=== PATIENT | female | born 1945 | race Two or more races ===

== ENCOUNTER 2024-03-03 15:56 | Inpatient (IN) | payer OTHER, MEDICAID ==
[~2024-03-03] VITALS: Ht 154.9 cm; Wt 43.7 kg
[2024-03-03 16:25] VITALS: PULSE 65; RESP 13; O2SAT 97
[2024-03-03] MEDS: SODIUM CHLORIDE 0.9% 1,000 ML IV ONE (16:30)
[2024-03-03 17:28] LABS: Basophils # (auto) 0.1 10 ^3/uL (0-0.2); Basophils % (auto) 0.4 % (0.0-2.0); Eosinophils # (auto) 0 10 ^3/uL (0-0.8); Eosinophils % (auto) 0.1 % (0.0-7.0); Hematocrit 45.8 % (36.0-46.0); Hemoglobin 15.1 g/dL (12.2-16.2); Lymphocytes # (auto) 0.8 10 ^3/uL (0.4-5.4); Lymphocytes % (auto) 4.6 % (10.0-50.0); Mean Corpuscular Hemoglobin 31.4 pg (28.0-32.0); Mean Corpuscular Hgb Conc. 33.1 g/dL (32.0-36.0); Mean Corpuscular Volume 95.1 fL (80.0-100.0); Monocytes # (auto) 0.9 10 ^3/uL (0-1.3); Monocytes % (auto) 5.4 % (0.0-12.0); Neutrophils # (auto) 15.5 10 ^3/uL (1.6-8.6); Neutrophils % (auto) 89.5 % (37.0-80.0); Platelet Count (auto) 271 10^3/uL (140-450); Red Blood Cells 4.81 10^6/uL (4.0-5.20); Red Cell Distribution Width 14.8 % (11.8-14.3); White Blood Cell 17.4 10^3/uL (4.4-10.8)
[2024-03-03] MEDS: ONDANSETRON HCL 4 MG/2 ML VIAL IV ONE ×2 (17:33→21:28)
[2024-03-03 17:46] LABS: Alanine Aminotransferase 18 U/L (7-40); Alkaline Phosphatase 52 U/L (46-116); Anion Gap 11 (5-15); Aspartate Aminotransferase 34 U/L (13-40); Blood Urea Nitrogen 18 mg/dL (9-23); Calcium 9.2 mg/dL (8.7-10.4); Carbon Dioxide 25 mmol/L (20-30); Chloride 104 mmol/L (98-107); Glucose 143 mg/dL (74-106); Lipase 17 U/L (12-53); Sodium 140 mmol/L (136-145)
[2024-03-03 17:47] LABS: Bilirubin, Total 0.5 mg/dL (0.2-1.0); Total Protein 6.4 g/dL (5.7-8.2)
[2024-03-03 17:50] LABS: Lactic Acid w/Reflex 2.1 mmol/L (0.4-2.0)
[2024-03-03] MEDS ORDERED: METOCLOPRAMIDE HCL 5MG/ml INJ 2ml VIAL IV ONE (18:30)
[2024-03-03] MEDS: METOCLOPRAMIDE HCL 5MG/ml INJ 2ml VIAL IV ONE (18:55)
[2024-03-03] MEDS: fentaNYL CITRATE 100 MCG/2 ML VL IV ONE (18:56)
[2024-03-03] MEDS: PIPERACILLIN-TAZOB 3.375GM 100 ML IV ONE (20:30)
[2024-03-03] MEDS ORDERED: ONDANSETRON HCL 4 MG/2 ML VIAL IV PRN (21:30)
[2024-03-03] MEDS: D5W/SOD CHL 0.45% 1,000 ML IV ONE (21:30)
[2024-03-03] MEDS: METOCLOPRAMIDE HCL 5MG/ml INJ 2ml VIAL IV SCH (22:00)
[2024-03-03] MEDS: PANTOPRAZOLE 40 MG/10 ML VIAL INJ IV ONE (23:30)
[2024-03-03] MEDS: D5W/SOD CHL 0.45% 1,000 ML IV SCH (23:30)
[2024-03-04] VITALS (9 sets, daily range): BP systolic 80–166; BP diastolic 67–93; PULSE 69–89; RESP 16–20; TEMP 97.8–98.4; O2SAT 91–99
[2024-03-04] MEDS: MORPHINE SULFATE INJ 2 MG/ml SYRG IV PRN (00:29)
[2024-03-04 03:26] LABS: Chloride 109 mmol/L (98-107); Potassium 3.4 mmol/L (3.5-5.1); Sodium 142 mmol/L (136-145)
[2024-03-04 03:27] LABS: Anion Gap 4 (5-15); Basophils # (auto) 0 10 ^3/uL (0-0.2); Basophils % (auto) 0.3 % (0.0-2.0); Calcium 8.5 mg/dL (8.7-10.4); Carbon Dioxide 29 mmol/L (20-30); Eosinophils # (auto) 0 10 ^3/uL (0-0.8); Eosinophils % (auto) 0.1 % (0.0-7.0); Hematocrit 39.4 % (36.0-46.0); Hemoglobin 13.1 g/dL (12.2-16.2); Lymphocytes % (auto) 7.3 % (10.0-50.0); Mean Corpuscular Hemoglobin 31.3 pg (28.0-32.0); Mean Corpuscular Hgb Conc. 33.1 g/dL (32.0-36.0); Mean Corpuscular Volume 94.4 fL (80.0-100.0); Monocytes # (auto) 1.3 10 ^3/uL (0-1.3); Monocytes % (auto) 9.5 % (0.0-12.0); Neutrophils # (auto) 10.9 10 ^3/uL (1.6-8.6); Neutrophils % (auto) 82.8 % (37.0-80.0); Platelet Count (auto) 196 10^3/uL (140-450); Red Blood Cells 4.17 10^6/uL (4.0-5.20); Red Cell Distribution Width 14.4 % (11.8-14.3); White Blood Cell 13.2 10^3/uL (4.4-10.8)
[2024-03-04 03:32] LABS: BUN/Creatinine Ratio 23.8 (10.0-20.0); Blood Urea Nitrogen 15 mg/dL (9-23); Glucose 112 mg/dL (74-106)
[2024-03-04] MEDS: hydrALAZINE HCL 20 MG/ML VL IV PRN (07:01)
[2024-03-04] MEDS: CARVEDILOL 3.125 MG TAB PO SCH (10:00)
[2024-03-04] MEDS: APIXABAN 5 MG TAB PO SCH (10:00)
[2024-03-04] MEDS: AMIODARONE HCL 200 MG TAB PO SCH (10:00)
[2024-03-04] MEDS: ONDANSETRON HCL 4 MG/2 ML VIAL IV PRN (10:31)
[2024-03-04] MEDS: PANTOPRAZOLE 40 MG/10 ML VIAL INJ IV SCH (10:31)
[2024-03-04] MEDS ORDERED: CLINIMIX PER PHARMACY 0 ML IV SCH (12:00)
[2024-03-04 15:28] LABS: Magnesium 1.9 mg/dL (1.6-2.6)
[2024-03-04 15:30] LABS: Phosphorus 4.7 mg/dL (2.4-5.1)
[2024-03-04] MEDS: POTASSIUM CHL 20MEQ/100ML 100 ML IV SCH (15:43)
[2024-03-04] MEDS: AMINO ACID INFUSION IN D10W 1,000 ML IV SCH (20:00)
[2024-03-05] VITALS (9 sets, daily range): BP systolic 123–171; BP diastolic 65–94; PULSE 77–94; RESP 12–20; TEMP 98.1–98.8; O2SAT 90–98
[2024-03-05] MEDS ORDERED: DEXTROSE (50%) 50ML SYRG IV SCH
[2024-03-05] MEDS: ACCU-CHEK COMFORT CURVE STRIP VI SCH (00:14)
[2024-03-05] MEDS: InsuLIN REG 1unit/0.01ml Soln (100units/ml) SC SCH (00:14)
[2024-03-05 06:13] LABS: Potassium 3.3 mmol/L (3.5-5.1)
[2024-03-05 06:14] LABS: Calcium 8.8 mg/dL (8.7-10.4)
[2024-03-05 06:19] LABS: Albumin 3.3 g/dL (3.2-4.8); BUN/Creatinine Ratio 27.7 (10.0-20.0)
[2024-03-05 06:20] LABS: Magnesium 1.7 mg/dL (1.6-2.6)
[2024-03-05 06:21] LABS: Phosphorus 2.8 mg/dL (2.4-5.1)
[2024-03-05] MEDS: POTASSIUM CHL 20MEQ/100ML 100 ML IV ONE (07:45)
[2024-03-05] MEDS: AZITHROMYCIN 500MG/ 250ML 250 ML IV SCH (10:00)
[2024-03-05] MEDS ORDERED: PRAV20TA3 PO (11:26)
[2024-03-05] MEDS ORDERED: HYDR1TAB97 PO (11:26)
[2024-03-05] MEDS ORDERED: APIX5TAB PO (11:26)
[2024-03-05] MEDS ORDERED: PANT40T PO (11:26)
[2024-03-05] MEDS ORDERED: METH-928 PO (11:26)
[2024-03-05] MEDS ORDERED: MET25T PO (11:26)
[2024-03-05] MEDS ORDERED: FAMO-12 PO (11:26)
[2024-03-05] MEDS ORDERED: SACU1TAB PO (11:26)
[2024-03-05] MEDS ORDERED: AMIO200T33 PO (11:26)
[2024-03-05] MEDS ORDERED: IPRA0.06 (11:26)
[2024-03-05] MEDS ORDERED: CARV6.2551 PO (11:26)
[2024-03-05] MEDS ORDERED: SUCR1SUS26 PO (11:26)
[2024-03-05] MEDS ORDERED: FENO54TA4 PO (11:26)
[2024-03-05] MEDS: cefTRIAXone 1GM/50ML D5W 50 ML IV SCH (11:38)
[2024-03-05] MEDS: MORPHINE SULFATE INJ 2 MG/ml SYRG IV PRN (16:31)
[2024-03-05] MEDS: MAGNESIUM SULFATE 1GM/100ML 100 ML IV ONE (17:30)
[2024-03-05] MEDS: POTASSIUM PHOSPHATE 22 MEQ in SODIUM CHL 0.9% 100 ML IV ONE (19:19)
[2024-03-05] MEDS: ACETAMINOPHEN 325 MG TAB PO PRN (23:40)
[2024-03-06] VITALS (13 sets, daily range): BP systolic 122–168; BP diastolic 69–91; PULSE 77–120; RESP 14–32; TEMP 98.3–99.3; O2SAT 88–96
[2024-03-06] MEDS: HYDROcodone-ACET 5/325MG TAB PO PRN (02:56)
[2024-03-06 06:47] LABS: Alkaline Phosphatase 56 U/L (46-116); Anion Gap 7 (5-15); BUN/Creatinine Ratio 29.3 (10.0-20.0); Blood Urea Nitrogen 12 mg/dL (9-23); Calcium 8.7 mg/dL (8.7-10.4); Carbon Dioxide 22 mmol/L (20-30); Chloride 104 mmol/L (98-107); Glucose 154 mg/dL (74-106); Magnesium 1.9 mg/dL (1.6-2.6); Potassium 3.4 mmol/L (3.5-5.1)
[2024-03-06 06:48] LABS: Aspartate Aminotransferase 15 U/L (13-40); Bilirubin, Total 0.5 mg/dL (0.2-1.0); Phosphorus 2.1 mg/dL (2.4-5.1); Total Protein 5.3 g/dL (5.7-8.2)
[2024-03-06 06:51] LABS: Alanine Aminotransferase < 9 U/L (7-40); Sodium 133 mmol/L (136-145)
[2024-03-06] MEDS: POTASSIUM PHOSPHATE 22 MEQ in SODIUM CHL 0.9% 100 ML IV ONE (13:45)
[2024-03-06] MEDS: IPRATROPIUM BROM 0.5 MG/2.5ML INH SOL NEB PRN (15:01)
[2024-03-06] MEDS: ALBUTEROL SULF 2.5 MG/0.5ML(0.5%) NEB SOLN NEB PRN (15:05)
[2024-03-06] MEDS: ENOXAPARIN SOD 30 MG/0.3 ML SYRINGE SC ONE (16:55)
[2024-03-06] MEDS: FUROSEMIDE 20 MG/2 ML VIAL IV ONE (17:31)
[2024-03-06] MEDS: MELATONIN 5 MG TAB PO ONE (22:18)
[2024-03-07] VITALS (49 sets, daily range): BP systolic 66–155; BP diastolic 40–85; PULSE 62–135; RESP 16–31; TEMP 96.9–97.9; O2SAT 88–100
[2024-03-07] MEDS: FUROSEMIDE 20 MG/2 ML VIAL IV ONE ×3 (03:18→15:15)
[2024-03-07 06:04] LABS: Potassium 3.1 mmol/L (3.5-5.1)
[2024-03-07 06:10] LABS: BUN/Creatinine Ratio 27.7 (10.0-20.0)
[2024-03-07 06:11] LABS: Magnesium 1.6 mg/dL (1.6-2.6)
[2024-03-07 06:12] LABS: Albumin 3.3 g/dL (3.2-4.8)
[2024-03-07 06:13] LABS: Phosphorus 2.8 mg/dL (2.4-5.1)
[2024-03-07] MEDS: ALBUTEROL SULF 2.5 MG/0.5ML(0.5%) NEB SOLN NEB PRN (07:14)
[2024-03-07] MEDS: IPRATROPIUM BROM 0.5 MG/2.5ML INH SOL NEB PRN (07:14)
[2024-03-07] MEDS: FUROSEMIDE 20 MG/2 ML VIAL IV SCH (08:10)
[2024-03-07 08:38] LABS: Base Excess -0.7 mmol/L (-2.0-3.0)
[2024-03-07] MEDS: FUROSEMIDE 40 MG/4 ML VIAL IV SCH (09:22)
[2024-03-07] MEDS: POTASSIUM PHOSPHATE 30 MEQ in SODIUM CHL 0.9% 100 ML IV ONE (10:00)
[2024-03-07] MEDS: ENOXAPARIN SOD 30 MG/0.3 ML SYRINGE SC SCH (10:00)
[2024-03-07] MEDS: KETOROLAC TROMETH 30 MG/ML 1ML VIAL IV PRN (12:05)
[2024-03-07] MEDS: METOCLOPRAMIDE HCL 5MG/ml INJ 2ml VIAL IV SCH (12:05)
[2024-03-07] MEDS ORDERED: FUROSEMIDE 40 MG/4 ML VIAL IV ONE (15:15)
[2024-03-07] MEDS: MAGNESIUM SULFATE 1GM/100ML 100 ML IV SCH (15:31)
[2024-03-07] MEDS: POTASSIUM CHL 20MEQ/100ML 100 ML IV ONE (15:32)
[2024-03-07] MEDS: MORPHINE SULFATE INJ 2 MG/ml SYRG IV PRN (15:55)
[2024-03-07] MEDS: NOREPINEPHRINE 8 MG/250ML KIT 250 ML IV SCH (16:27)
[2024-03-07 17:46] LABS: Basophils # (auto) 0 10 ^3/uL (0-0.2); Basophils % (auto) 0.2 % (0.0-2.0); Eosinophils # (auto) 0 10 ^3/uL (0-0.8); Hematocrit 39.8 % (36.0-46.0); Hemoglobin 13.1 g/dL (12.2-16.2); Lymphocytes # (auto) 0.2 10 ^3/uL (0.4-5.4); Lymphocytes % (auto) 1.3 % (10.0-50.0); Mean Corpuscular Hemoglobin 31.1 pg (28.0-32.0); Mean Corpuscular Volume 94.2 fL (80.0-100.0); Monocytes # (auto) 1.1 10 ^3/uL (0-1.3); Monocytes % (auto) 6.7 % (0.0-12.0); Neutrophils # (auto) 15.2 10 ^3/uL (1.6-8.6); Neutrophils % (auto) 91.8 % (37.0-80.0); Platelet Count (auto) 176 10^3/uL (140-450); Red Blood Cells 4.22 10^6/uL (4.0-5.20); Red Cell Distribution Width 14.1 % (11.8-14.3); White Blood Cell 16.5 10^3/uL (4.4-10.8)
[2024-03-07 17:57] LABS: INR 1.25 (0.9-1.15); Partial Thromboplastin Time 34.1 SEC (24.5-34.5)
[2024-03-07] MEDS: LIDOCAINE 1% (LOCAL ANESTH.) PF 5ml SDV ID ONE (18:59)
[2024-03-07] MEDS: AMIODARONE 450mg/250ml AE 250 ML IV SCH (19:49)
[2024-03-07] MEDS: AMIODARONE BOLUS KIT 100 ML IV ONE (19:50)
[2024-03-07] MEDS: SODIUM CHLOR 0.9% PF (SALINE LOCK) 10ML VIAL/SYR IV SCH (21:46)
[2024-03-08] VITALS (100 sets, daily range): BP systolic 86–144; BP diastolic 52–83; PULSE 71–121; RESP 12–37; TEMP 96.8–98.4; O2SAT 84–100
[2024-03-08] MEDS: AMIODARONE 450mg/250ml AE 250 ML IV SCH (01:09)
[2024-03-08 06:19] LABS: Basophils # (auto) 0 10 ^3/uL (0-0.2); Basophils % (auto) 0.1 % (0.0-2.0); Eosinophils # (auto) 0 10 ^3/uL (0-0.8); Hematocrit 40.4 % (36.0-46.0); Hemoglobin 13.4 g/dL (12.2-16.2); Lymphocytes # (auto) 0.3 10 ^3/uL (0.4-5.4); Lymphocytes % (auto) 1.6 % (10.0-50.0); Mean Corpuscular Hemoglobin 31.6 pg (28.0-32.0); Mean Corpuscular Hgb Conc. 33.2 g/dL (32.0-36.0); Mean Corpuscular Volume 95.2 fL (80.0-100.0); Monocytes # (auto) 1.3 10 ^3/uL (0-1.3); Monocytes % (auto) 8.4 % (0.0-12.0); Neutrophils # (auto) 14.3 10 ^3/uL (1.6-8.6); Neutrophils % (auto) 89.9 % (37.0-80.0); Platelet Count (auto) 153 10^3/uL (140-450); Red Blood Cells 4.25 10^6/uL (4.0-5.20); Red Cell Distribution Width 14.1 % (11.8-14.3); White Blood Cell 15.9 10^3/uL (4.4-10.8)
[2024-03-08 06:40] LABS: Albumin 3.2 g/dL (3.2-4.8); Alkaline Phosphatase 68 U/L (46-116); Anion Gap 7 (5-15); Aspartate Aminotransferase 19 U/L (13-40); BUN/Creatinine Ratio 35.5 (10.0-20.0); Blood Urea Nitrogen 22 mg/dL (9-23); Calcium 9.1 mg/dL (8.7-10.4); Carbon Dioxide 28 mmol/L (20-30); Chloride 100 mmol/L (98-107); Glucose 119 mg/dL (74-106); Magnesium 1.9 mg/dL (1.6-2.6); Potassium 3.2 mmol/L (3.5-5.1); Sodium 135 mmol/L (136-145)
[2024-03-08 06:41] LABS: Alanine Aminotransferase < 9 U/L (7-40); Bilirubin, Total 0.4 mg/dL (0.2-1.0); Phosphorus 5.8 mg/dL (2.4-5.1); Total Protein 5.5 g/dL (5.7-8.2)
[2024-03-08] MEDS: POTASSIUM CHL 20MEQ/100ML 100 ML IV SCH (10:24)
[2024-03-08] MEDS: POTASSIUM CHL 20MEQ/100ML 100 ML IV ONE (11:00)
[2024-03-08 12:43] LABS: Base Excess 1.3 mmol/L (-2.0-3.0)
[2024-03-08] MEDS: AMINO ACID INFUSION IN D10W 1,000 ML IV ONE (20:35)
[2024-03-08 22:09] LABS: Body Fluid Polymorphonuclear 75 % (0-25); Body Fluid Red Blood Cells 235 CUMM (0-2000); Body Fluid White Blood Cells 403 CUMM (0-200)
[2024-03-09] VITALS (87 sets, daily range): BP systolic 100–142; BP diastolic 54–75; PULSE 67–84; RESP 13–26; TEMP 97.3–98.3; O2SAT 90–100
[2024-03-09 06:17] LABS: Basophils # (auto) 0 10 ^3/uL (0-0.2); Basophils % (auto) 0.1 % (0.0-2.0); Eosinophils # (auto) 0 10 ^3/uL (0-0.8); Eosinophils % (auto) 0.1 % (0.0-7.0); Hematocrit 36.4 % (36.0-46.0); Hemoglobin 12.1 g/dL (12.2-16.2); Lymphocytes # (auto) 0.2 10 ^3/uL (0.4-5.4); Lymphocytes % (auto) 2.3 % (10.0-50.0); Mean Corpuscular Hemoglobin 31.1 pg (28.0-32.0); Mean Corpuscular Hgb Conc. 33.3 g/dL (32.0-36.0); Mean Corpuscular Volume 93.3 fL (80.0-100.0); Monocytes # (auto) 0.8 10 ^3/uL (0-1.3); Monocytes % (auto) 8.2 % (0.0-12.0); Neutrophils # (auto) 8.9 10 ^3/uL (1.6-8.6); Neutrophils % (auto) 89.3 % (37.0-80.0); Platelet Count (auto) 123 10^3/uL (140-450); Red Blood Cells 3.91 10^6/uL (4.0-5.20); Red Cell Distribution Width 13.9 % (11.8-14.3)
[2024-03-09] MEDS: ACETYLCYSTEINE 20%(200MG/ML) SOL 4ML NEB PRN (06:22)
[2024-03-09 06:39] LABS: Albumin 2.9 g/dL (3.2-4.8); Alkaline Phosphatase 61 U/L (46-116); Anion Gap 6 (5-15); Aspartate Aminotransferase 16 U/L (13-40); BUN/Creatinine Ratio 49.3 (10.0-20.0); Calcium 8.8 mg/dL (8.7-10.4); Carbon Dioxide 30 mmol/L (20-30); Chloride 99 mmol/L (98-107); Glucose 127 mg/dL (74-106); Magnesium 1.7 mg/dL (1.6-2.6); Potassium 3.2 mmol/L (3.5-5.1); Sodium 135 mmol/L (136-145)
[2024-03-09 06:40] LABS: Bilirubin, Total 0.3 mg/dL (0.2-1.0); Phosphorus 3.1 mg/dL (2.4-5.1)
[2024-03-09 06:50] LABS: Alanine Aminotransferase < 9 U/L (7-40); Blood Urea Nitrogen 34 mg/dL (9-23)
[2024-03-09] MEDS: POTASSIUM PHOSPHATE 22 MEQ in SODIUM CHL 0.9% 100 ML IV ONE (08:15)
[2024-03-09] MEDS: MAGNESIUM SULFATE 1GM/100ML 100 ML IV SCH (09:35)
[2024-03-09] MEDS: FUROSEMIDE INJECTION 100 MG in SODIUM CHL 0.9% 100 ML IV SCH (09:36)
[2024-03-09] MEDS: CEFEPIME 1GM/ 50ML 50 ML IV SCH (09:36)
[2024-03-09] MEDS: ENOXAPARIN SOD 40 MG/0.4 ML SYRINGE SC SCH (09:37)
[2024-03-09] MEDS: ALBUMIN 25% 50 ML IV SCH (09:39)
[2024-03-09] MEDS ORDERED: TPN PER PHARMACY 0 ML IV SCH (11:00)
[2024-03-09] MEDS: POTASSIUM CHL 20MEQ/100ML 100 ML IV ONE (12:30)
[2024-03-09] MEDS: MORPHINE SULFATE INJ 2 MG/ml SYRG ONE (20:14)
[2024-03-09] MEDS: TPN PER PHARMACY IV NR (20:30)
[2024-03-10] VITALS (97 sets, daily range): BP systolic 97–147; BP diastolic 51–87; PULSE 67–84; RESP 14–29; TEMP 97.6–99; O2SAT 91–99
[2024-03-10] MEDS: FUROSEMIDE INJECTION 10 ML ONE (04:32)
[2024-03-10 06:10] LABS: Basophils # (auto) 0 10 ^3/uL (0-0.2); Basophils % (auto) 0.1 % (0.0-2.0); Eosinophils # (auto) 0 10 ^3/uL (0-0.8); Eosinophils % (auto) 0.3 % (0.0-7.0); Hematocrit 35.3 % (36.0-46.0); Lymphocytes # (auto) 0.2 10 ^3/uL (0.4-5.4); Lymphocytes % (auto) 3.2 % (10.0-50.0); Mean Corpuscular Hemoglobin 31.4 pg (28.0-32.0); Mean Corpuscular Hgb Conc. 33.9 g/dL (32.0-36.0); Mean Corpuscular Volume 92.6 fL (80.0-100.0); Monocytes # (auto) 0.6 10 ^3/uL (0-1.3); Monocytes % (auto) 8.2 % (0.0-12.0); Neutrophils # (auto) 6.1 10 ^3/uL (1.6-8.6); Neutrophils % (auto) 88.2 % (37.0-80.0); Platelet Count (auto) 93 10^3/uL (140-450); Red Blood Cells 3.81 10^6/uL (4.0-5.20); Red Cell Distribution Width 13.6 % (11.8-14.3); White Blood Cell 6.9 10^3/uL (4.4-10.8)
[2024-03-10 06:40] LABS: Albumin 3.4 g/dL (3.2-4.8); Alkaline Phosphatase 47 U/L (46-116); Anion Gap 6 (5-15); Aspartate Aminotransferase 11 U/L (13-40); BUN/Creatinine Ratio 55.6 (10.0-20.0); Bilirubin, Total 0.5 mg/dL (0.2-1.0); Blood Urea Nitrogen 30 mg/dL (9-23); Calcium 8.8 mg/dL (8.7-10.4); Carbon Dioxide 36 mmol/L (20-30); Chloride 94 mmol/L (98-107); Glucose 270 mg/dL (74-106); Magnesium 1.7 mg/dL (1.6-2.6); Phosphorus 1.8 mg/dL (2.4-5.1); Sodium 136 mmol/L (136-145); Triglycerides 81 mg/dL (< 150)
[2024-03-10 06:41] LABS: Total Protein 5.4 g/dL (5.7-8.2)
[2024-03-10 06:48] LABS: Alanine Aminotransferase < 9 U/L (7-40); Potassium 2.3 mmol/L (3.5-5.1)
[2024-03-10] MEDS: POTASSIUM CHL 20MEQ/100ML 100 ML IV SCH (08:54)
[2024-03-10] MEDS: SUCRALFATE 1 GM/10 ML ORAL SUSP GT ONE (12:40)
[2024-03-10] MEDS: MAGNESIUM SULFATE 1GM/100ML 100 ML IV SCH (12:47)
[2024-03-10] MEDS: MAGNESIUM SULFATE 1GM/100ML 200 ML IV ONE (12:50)
[2024-03-10 14:06] LABS: Protein, Body Fluid 1.9 g/dL (.)
[2024-03-10] MEDS: POTASSIUM CHL 20MEQ/100ML 200 ML IV ONE (17:27)
[2024-03-10] MEDS: ENSURE CLEAR Apple 8oz Carton PO SCH (17:54)
[2024-03-10] MEDS: POTASSIUM PHOSPHATE 26.4 MEQ in SODIUM CHL 0.9% 100 ML IV ONE (18:41)
[2024-03-10] MEDS: TPN PER PHARMACY IV NR (20:31)
[2024-03-10] MEDS: SUCRALFATE 1 GM/10 ML ORAL SUSP GT SCH (23:37)
[2024-03-11] VITALS (49 sets, daily range): BP systolic 107–154; BP diastolic 57–79; PULSE 65–94; RESP 11–32; TEMP 97.8–98.3; O2SAT 90–99
[2024-03-11 06:55] LABS: Basophils # (auto) 0 10 ^3/uL (0-0.2); Eosinophils # (auto) 0 10 ^3/uL (0-0.8); Eosinophils % (auto) 0.4 % (0.0-7.0); Hematocrit 36.3 % (36.0-46.0); Hemoglobin 12.4 g/dL (12.2-16.2); Lymphocytes # (auto) 0.2 10 ^3/uL (0.4-5.4); Lymphocytes % (auto) 3.5 % (10.0-50.0); Mean Corpuscular Hemoglobin 31.3 pg (28.0-32.0); Mean Corpuscular Hgb Conc. 34.2 g/dL (32.0-36.0); Mean Corpuscular Volume 91.6 fL (80.0-100.0); Monocytes # (auto) 0.4 10 ^3/uL (0-1.3); Monocytes % (auto) 6.8 % (0.0-12.0); Neutrophils # (auto) 5.6 10 ^3/uL (1.6-8.6); Neutrophils % (auto) 89.3 % (37.0-80.0); Nucleated Red Blood Cells % 0.1 %; Platelet Count (auto) 90 10^3/uL (140-450); Red Blood Cells 3.96 10^6/uL (4.0-5.20); Red Cell Distribution Width 13.6 % (11.8-14.3); White Blood Cell 6.2 10^3/uL (4.4-10.8)
[2024-03-11 07:17] LABS: Alanine Aminotransferase 9 U/L (7-40); Albumin 3.3 g/dL (3.2-4.8); Alkaline Phosphatase 56 U/L (46-116); Anion Gap 5 (5-15); Aspartate Aminotransferase 20 U/L (13-40); BUN/Creatinine Ratio 62.3 (10.0-20.0); Bilirubin, Total 0.4 mg/dL (0.2-1.0); Blood Urea Nitrogen 33 mg/dL (9-23); Calcium 9.1 mg/dL (8.7-10.4); Carbon Dioxide 40 mmol/L (20-30); Chloride 92 mmol/L (98-107); Glucose 198 mg/dL (74-106); Magnesium 1.8 mg/dL (1.6-2.6); Phosphorus 2.3 mg/dL (2.4-5.1); Sodium 137 mmol/L (136-145); Total Protein 5.3 g/dL (5.7-8.2)
[2024-03-11 07:18] LABS: Potassium 2.4 mmol/L (3.5-5.1)
[2024-03-11] MEDS ORDERED: POTASSIUM PHOSPHATE 44 MEQ in D5W 5% 250 ML IV ONE (09:15)
[2024-03-11] MEDS: POTASSIUM CHL 20MEQ/100ML 100 ML IV SCH (10:11)
[2024-03-11] MEDS: MORPHINE SULFATE INJ 2 MG/ml SYRG IV PRN (15:13)
[2024-03-11] MEDS: POTASSIUM PHOSP 22MEQ(15MMOLE) in NS 100 ML IV ONE (18:02)
[2024-03-11] MEDS: TPN PER PHARMACY IV NR (20:43)
[2024-03-11] MEDS: LEVALBUTEROL HCL 1.25 MG/3 ML NEB NEB SCH (22:02)
[2024-03-11] MEDS: ACETYLCYSTEINE 20%(200MG/ML) SOL 4ML NEB SCH (22:04)
[2024-03-12] VITALS (64 sets, daily range): BP systolic 92–130; BP diastolic 56–73; PULSE 66–79; RESP 10–40; TEMP 97–98; O2SAT 91–98
[2024-03-12 06:18] LABS: Basophils # (auto) 0 10 ^3/uL (0-0.2); Basophils % (auto) 0.1 % (0.0-2.0); Eosinophils # (auto) 0 10 ^3/uL (0-0.8); Eosinophils % (auto) 0.1 % (0.0-7.0); Hematocrit 37.4 % (36.0-46.0); Hemoglobin 12.9 g/dL (12.2-16.2); Lymphocytes # (auto) 0.3 10 ^3/uL (0.4-5.4); Lymphocytes % (auto) 3.5 % (10.0-50.0); Mean Corpuscular Hemoglobin 31.5 pg (28.0-32.0); Mean Corpuscular Hgb Conc. 34.5 g/dL (32.0-36.0); Mean Corpuscular Volume 91.4 fL (80.0-100.0); Monocytes # (auto) 0.8 10 ^3/uL (0-1.3); Monocytes % (auto) 8.2 % (0.0-12.0); Neutrophils # (auto) 8.2 10 ^3/uL (1.6-8.6); Neutrophils % (auto) 88.1 % (37.0-80.0); Platelet Count (auto) 104 10^3/uL (140-450); Red Blood Cells 4.09 10^6/uL (4.0-5.20); Red Cell Distribution Width 13.5 % (11.8-14.3); White Blood Cell 9.3 10^3/uL (4.4-10.8)
[2024-03-12 06:27] LABS: Alanine Aminotransferase 36 U/L (7-40); Albumin 3.4 g/dL (3.2-4.8); Alkaline Phosphatase 69 U/L (46-116); Aspartate Aminotransferase 75 U/L (13-40); BUN/Creatinine Ratio 69.5 (10.0-20.0); Blood Urea Nitrogen 41 mg/dL (9-23); Calcium 9.3 mg/dL (8.7-10.4); Chloride 89 mmol/L (98-107); Glucose 199 mg/dL (74-106); Magnesium 1.9 mg/dL (1.6-2.6); Potassium 2.7 mmol/L (3.5-5.1); Sodium 140 mmol/L (136-145)
[2024-03-12 06:28] LABS: Bilirubin, Total 0.4 mg/dL (0.2-1.0); Phosphorus 3.9 mg/dL (2.4-5.1); Total Protein 5.7 g/dL (5.7-8.2)
[2024-03-12 06:37] LABS: Anion Gap 10.99999 (5-15)
[2024-03-12 06:38] LABS: Carbon Dioxide > 40 mmol/L (20-31)
[2024-03-12] MEDS: MAGNESIUM SULFATE 1GM/100ML 100 ML IV SCH (11:21)
[2024-03-12] MEDS: POTASSIUM CHL 20MEQ/100ML 100 ML IV SCH (11:21)
[2024-03-12] MEDS ORDERED: POTASSIUM CHL 20MEQ/100ML 100 ML IV ONE (14:00)
[2024-03-12] MEDS: POTASSIUM CHL 20MEQ/100ML 100 ML IV ONE (17:29)
[2024-03-12] MEDS: TPN PER PHARMACY IV NR (19:58)
[2024-03-13] VITALS (39 sets, daily range): BP systolic 114–143; BP diastolic 59–78; PULSE 65–87; RESP 11–38; TEMP 96.8–98.3; O2SAT 86–97
[2024-03-13 06:13] LABS: Basophils # (auto) 0 10 ^3/uL (0-0.2); Basophils % (auto) 0.2 % (0.0-2.0); Eosinophils # (auto) 0 10 ^3/uL (0-0.8); Eosinophils % (auto) 0.2 % (0.0-7.0); Hematocrit 37.2 % (36.0-46.0); Hemoglobin 12.7 g/dL (12.2-16.2); Lymphocytes # (auto) 0.2 10 ^3/uL (0.4-5.4); Lymphocytes % (auto) 2.1 % (10.0-50.0); Mean Corpuscular Hemoglobin 31.3 pg (28.0-32.0); Mean Corpuscular Hgb Conc. 34.1 g/dL (32.0-36.0); Mean Corpuscular Volume 91.7 fL (80.0-100.0); Monocytes # (auto) 0.9 10 ^3/uL (0-1.3); Neutrophils # (auto) 10.3 10 ^3/uL (1.6-8.6); Neutrophils % (auto) 89.5 % (37.0-80.0); Platelet Count (auto) 110 10^3/uL (140-450); Red Blood Cells 4.06 10^6/uL (4.0-5.20); Red Cell Distribution Width 13.7 % (11.8-14.3); White Blood Cell 11.5 10^3/uL (4.4-10.8)
[2024-03-13 06:16] LABS: Calcium 9.3 mg/dL (8.7-10.4); Chloride 92 mmol/L (98-107); Potassium 3.2 mmol/L (3.5-5.1); Sodium 141 mmol/L (136-145)
[2024-03-13 06:21] LABS: Glucose 127 mg/dL (74-106)
[2024-03-13 06:22] LABS: Magnesium 2.4 mg/dL (1.6-2.6)
[2024-03-13 06:24] LABS: Phosphorus 3.5 mg/dL (2.4-5.1)
[2024-03-13 06:25] LABS: Anion Gap 8.99999 (5-15); Blood Urea Nitrogen 51 mg/dL (9-23)
[2024-03-13 06:26] LABS: Carbon Dioxide > 40 mmol/L (20-31)
[2024-03-13] MEDS: POTASSIUM CHL 20MEQ/100ML 100 ML IV SCH (11:00)
[2024-03-13] MEDS: TPN PER PHARMACY IV NR (19:55)
[2024-03-13] MEDS: KETOROLAC TROMETH 30 MG/ML 1ML VIAL IV PRN (21:58)
[2024-03-14] VITALS (34 sets, daily range): BP systolic 104–163; BP diastolic 54–81; PULSE 63–77; RESP 12–28; TEMP 98.2–98.8; O2SAT 92–99
[2024-03-14 06:02] LABS: Basophils # (auto) 0.1 10 ^3/uL (0-0.2); Basophils % (auto) 0.8 % (0.0-2.0); Eosinophils # (auto) 0 10 ^3/uL (0-0.8); Eosinophils % (auto) 0.1 % (0.0-7.0); Hematocrit 38.9 % (36.0-46.0); Hemoglobin 12.9 g/dL (12.2-16.2); Lymphocytes # (auto) 0.4 10 ^3/uL (0.4-5.4); Lymphocytes % (auto) 3.3 % (10.0-50.0); Mean Corpuscular Hemoglobin 30.6 pg (28.0-32.0); Mean Corpuscular Hgb Conc. 33.1 g/dL (32.0-36.0); Mean Corpuscular Volume 92.7 fL (80.0-100.0); Monocytes # (auto) 1.3 10 ^3/uL (0-1.3); Monocytes % (auto) 10.2 % (0.0-12.0); Neutrophils # (auto) 10.9 10 ^3/uL (1.6-8.6); Neutrophils % (auto) 85.6 % (37.0-80.0); Platelet Count (auto) 137 10^3/uL (140-450); Red Cell Distribution Width 13.9 % (11.8-14.3); White Blood Cell 12.7 10^3/uL (4.4-10.8)
[2024-03-14 06:16] LABS: Alanine Aminotransferase 88 U/L (7-40); Albumin 3.3 g/dL (3.2-4.8); Alkaline Phosphatase 77 U/L (46-116); Aspartate Aminotransferase 98 U/L (13-40); BUN/Creatinine Ratio 79.7 (10.0-20.0); Blood Urea Nitrogen 59 mg/dL (9-23); Calcium 9.6 mg/dL (8.7-10.4); Chloride 96 mmol/L (98-107); Glucose 96 mg/dL (74-106); Magnesium 2.2 mg/dL (1.6-2.6); Phosphorus 2.6 mg/dL (2.4-5.1); Potassium 3.9 mmol/L (3.5-5.1); Sodium 144 mmol/L (136-145)
[2024-03-14 06:17] LABS: Bilirubin, Total 0.4 mg/dL (0.2-1.0); Total Protein 5.8 g/dL (5.7-8.2)
[2024-03-14 06:19] LABS: Anion Gap 7.99999 (5-15); Carbon Dioxide > 40 mmol/L (20-31)
[2024-03-14] MEDS ORDERED: LORazepam 2MG/ML-1ML VIAL IV PRN (15:00)
[2024-03-14 18:12] LABS: Urine Amorphous Crystal FEW /hpf (None Seen); Urine Bacteria FEW /hpf (None Seen); Urine Blood Negative /uL (Negative); Urine Clarity Turbid (Clear); Urine Color Yellow (Yellow); Urine Mucus FEW (None Seen); Urine Protein, UAD TRACE (Negative); Urine Specific Gravity 1.014 (1.001-1.035); Urine Urobilinogen Normal (Negative); Urine WBC 47 /hpf (0 - 5); Urine pH 5.5 (5.0-9.0)
[2024-03-14] MEDS: TPN PER PHARMACY IV NR (20:17)
[2024-03-14] MEDS: IOHEXOL 300 MG/ML 100ML BOTTLE IJ ONE (22:02)
[2024-03-15] VITALS (33 sets, daily range): BP systolic 108–146; BP diastolic 52–77; PULSE 59–100; RESP 10–35; TEMP 97.9–98.9; O2SAT 88–100
[2024-03-15 05:17] LABS: Basophils # (auto) 0 10 ^3/uL (0-0.2); Basophils % (auto) 0.3 % (0.0-2.0); Eosinophils # (auto) 0.2 10 ^3/uL (0-0.8); Eosinophils % (auto) 1.8 % (0.0-7.0); Hematocrit 35.9 % (36.0-46.0); Hemoglobin 11.8 g/dL (12.2-16.2); Lymphocytes # (auto) 0.3 10 ^3/uL (0.4-5.4); Lymphocytes % (auto) 2.8 % (10.0-50.0); Mean Corpuscular Hemoglobin 30.2 pg (28.0-32.0); Mean Corpuscular Hgb Conc. 32.8 g/dL (32.0-36.0); Mean Corpuscular Volume 91.9 fL (80.0-100.0); Monocytes # (auto) 0.9 10 ^3/uL (0-1.3); Monocytes % (auto) 8.7 % (0.0-12.0); Neutrophils # (auto) 9.4 10 ^3/uL (1.6-8.6); Neutrophils % (auto) 86.4 % (37.0-80.0); Nucleated Red Blood Cells % 0.1 %; Platelet Count (auto) 142 10^3/uL (140-450); Red Cell Distribution Width 13.8 % (11.8-14.3); White Blood Cell 10.9 10^3/uL (4.4-10.8)
[2024-03-15 05:35] LABS: Alanine Aminotransferase 91 U/L (7-40); Albumin 3.1 g/dL (3.2-4.8); Alkaline Phosphatase 81 U/L (46-116); Anion Gap 4 (5-15); Aspartate Aminotransferase 94 U/L (13-40); BUN/Creatinine Ratio 96.3 (10.0-20.0); Blood Urea Nitrogen 77 mg/dL (9-23); Calcium 9.4 mg/dL (8.7-10.4); Carbon Dioxide 39 mmol/L (20-31); Chloride 97 mmol/L (98-107); Glucose 124 mg/dL (74-106); Magnesium 2.3 mg/dL (1.6-2.6); Phosphorus 3.7 mg/dL (2.4-5.1); Potassium 4.3 mmol/L (3.5-5.1); Sodium 140 mmol/L (136-145)
[2024-03-15 05:36] LABS: Bilirubin, Total 0.3 mg/dL (0.2-1.0); Total Protein 5.4 g/dL (5.7-8.2)
[2024-03-15] MEDS: FUROSEMIDE 40 MG/4 ML VIAL IV SCH (10:16)
[2024-03-15] MEDS: TPN PER PHARMACY IV NR (20:07)
[2024-03-16] VITALS (29 sets, daily range): BP systolic 118–148; BP diastolic 55–86; PULSE 57–68; RESP 11–29; TEMP 97.8–98.7; O2SAT 92–100
[2024-03-16 05:22] LABS: Basophils # (auto) 0 10 ^3/uL (0-0.2); Basophils % (auto) 0.4 % (0.0-2.0); Eosinophils # (auto) 0.4 10 ^3/uL (0-0.8); Eosinophils % (auto) 4.6 % (0.0-7.0); Hematocrit 34.2 % (36.0-46.0); Hemoglobin 11.3 g/dL (12.2-16.2); Lymphocytes # (auto) 0.4 10 ^3/uL (0.4-5.4); Mean Corpuscular Hemoglobin 30.7 pg (28.0-32.0); Mean Corpuscular Hgb Conc. 33.2 g/dL (32.0-36.0); Mean Corpuscular Volume 92.4 fL (80.0-100.0); Monocytes # (auto) 0.7 10 ^3/uL (0-1.3); Monocytes % (auto) 8.4 % (0.0-12.0); Neutrophils # (auto) 7.3 10 ^3/uL (1.6-8.6); Neutrophils % (auto) 82.6 % (37.0-80.0); Nucleated Red Blood Cells % 0.1 %; Platelet Count (auto) 156 10^3/uL (140-450); White Blood Cell 8.8 10^3/uL (4.4-10.8)
[2024-03-16 05:40] LABS: Alanine Aminotransferase 70 U/L (7-40); Alkaline Phosphatase 75 U/L (46-116); Anion Gap 4 (5-15); Aspartate Aminotransferase 62 U/L (13-40); BUN/Creatinine Ratio 89.2 (10.0-20.0); Blood Urea Nitrogen 74 mg/dL (9-23); Calcium 9.2 mg/dL (8.7-10.4); Carbon Dioxide 36 mmol/L (20-31); Chloride 99 mmol/L (98-107); Glucose 182 mg/dL (74-106); Magnesium 2.5 mg/dL (1.6-2.6); Potassium 4.6 mmol/L (3.5-5.1); Sodium 139 mmol/L (136-145)
[2024-03-16 05:41] LABS: Bilirubin, Total 0.3 mg/dL (0.2-1.0); Phosphorus 4.5 mg/dL (2.4-5.1); Total Protein 5.4 g/dL (5.7-8.2)
[2024-03-16] MEDS: GASTROGRAFIN 120 ML SOL ONE (13:00)
[2024-03-16] MEDS: MORPHINE SULFATE 4 MG/ML SYR/VIAL IV PRN (16:00)
[2024-03-16] MEDS: TPN PER PHARMACY IV NR (20:01)
[2024-03-17] VITALS (63 sets, daily range): BP systolic 97–146; BP diastolic 54–77; PULSE 58–73; RESP 10–29; TEMP 97–98.3; O2SAT 88–100
[2024-03-17 05:08] LABS: Basophils # (auto) 0 10 ^3/uL (0-0.2); Basophils % (auto) 0.1 % (0.0-2.0); Eosinophils # (auto) 0.5 10 ^3/uL (0-0.8); Eosinophils % (auto) 4.2 % (0.0-7.0); Hematocrit 33.6 % (36.0-46.0); Hemoglobin 11.3 g/dL (12.2-16.2); Lymphocytes # (auto) 0.4 10 ^3/uL (0.4-5.4); Lymphocytes % (auto) 3.4 % (10.0-50.0); Mean Corpuscular Hemoglobin 30.8 pg (28.0-32.0); Mean Corpuscular Hgb Conc. 33.7 g/dL (32.0-36.0); Mean Corpuscular Volume 91.4 fL (80.0-100.0); Monocytes # (auto) 0.8 10 ^3/uL (0-1.3); Monocytes % (auto) 7.8 % (0.0-12.0); Neutrophils # (auto) 9.1 10 ^3/uL (1.6-8.6); Neutrophils % (auto) 84.5 % (37.0-80.0); Platelet Count (auto) 192 10^3/uL (140-450); Red Blood Cells 3.68 10^6/uL (4.0-5.20); Red Cell Distribution Width 13.2 % (11.8-14.3); White Blood Cell 10.7 10^3/uL (4.4-10.8)
[2024-03-17 05:23] LABS: Alanine Aminotransferase 55 U/L (7-40); Alkaline Phosphatase 73 U/L (46-116); Anion Gap 3 (5-15); Aspartate Aminotransferase 49 U/L (13-40); Bilirubin, Total 0.3 mg/dL (0.2-1.0); Blood Urea Nitrogen 67 mg/dL (9-23); Calcium 9.2 mg/dL (8.7-10.4); Carbon Dioxide 35 mmol/L (20-31); Chloride 101 mmol/L (98-107); Glucose 108 mg/dL (74-106); Magnesium 2.3 mg/dL (1.6-2.6); Phosphorus 3.6 mg/dL (2.4-5.1); Potassium 4.4 mmol/L (3.5-5.1); Sodium 139 mmol/L (136-145); Total Protein 5.3 g/dL (5.7-8.2)
[2024-03-17 06:03] LABS: Triglycerides 63 mg/dL (< 150)
[2024-03-17] MEDS: LIDOCAINE 5% TOPICAL PATCH TOP SCH (15:41)
[2024-03-17] MEDS: TPN PER PHARMACY IV NR (21:21)
[2024-03-18] VITALS (44 sets, daily range): BP systolic 94–133; BP diastolic 49–70; PULSE 56–75; RESP 11–24; TEMP 97.1–98.2; O2SAT 92–100
[2024-03-18 05:14] LABS: Basophils # (auto) 0 10 ^3/uL (0-0.2); Basophils % (auto) 0.3 % (0.0-2.0); Eosinophils # (auto) 0.3 10 ^3/uL (0-0.8); Eosinophils % (auto) 3.1 % (0.0-7.0); Hematocrit 31.2 % (36.0-46.0); Hemoglobin 10.6 g/dL (12.2-16.2); Lymphocytes # (auto) 0.5 10 ^3/uL (0.4-5.4); Lymphocytes % (auto) 5.2 % (10.0-50.0); Mean Corpuscular Hemoglobin 31.1 pg (28.0-32.0); Mean Corpuscular Volume 91.4 fL (80.0-100.0); Monocytes # (auto) 0.7 10 ^3/uL (0-1.3); Monocytes % (auto) 8.1 % (0.0-12.0); Neutrophils # (auto) 7.3 10 ^3/uL (1.6-8.6); Neutrophils % (auto) 83.3 % (37.0-80.0); Platelet Count (auto) 213 10^3/uL (140-450); Red Blood Cells 3.42 10^6/uL (4.0-5.20); Red Cell Distribution Width 13.7 % (11.8-14.3); White Blood Cell 8.7 10^3/uL (4.4-10.8)
[2024-03-18 05:30] LABS: Alanine Aminotransferase 43 U/L (7-40); Albumin 2.9 g/dL (3.2-4.8); Alkaline Phosphatase 72 U/L (46-116); Anion Gap 3 (5-15); Aspartate Aminotransferase 37 U/L (13-40); BUN/Creatinine Ratio 91.5 (10.0-20.0); Blood Urea Nitrogen 75 mg/dL (9-23); Calcium 8.8 mg/dL (8.7-10.4); Carbon Dioxide 33 mmol/L (20-31); Chloride 100 mmol/L (98-107); Glucose 147 mg/dL (74-106); Magnesium 2.2 mg/dL (1.6-2.6); Potassium 4.2 mmol/L (3.5-5.1); Sodium 136 mmol/L (136-145)
[2024-03-18 05:31] LABS: Bilirubin, Total 0.3 mg/dL (0.2-1.0); Phosphorus 3.6 mg/dL (2.4-5.1); Total Protein 5.2 g/dL (5.7-8.2)
[2024-03-18] MEDS: CARBAMIDE PEROXIDE 6.5% OTIC(EAR) SOLN 15ML EACH EAR SCH (10:00)
[2024-03-18] MEDS: METOPROLOL TARTRATE 25 MG TAB PO SCH (10:00)
[2024-03-18] MEDS: GASTROGRAFIN 120 ML SOL ONE (10:32)
[2024-03-18] MEDS: TPN PER PHARMACY IV NR (21:11)
[2024-03-18] MEDS: HYDROcodone-ACET 5/325MG TAB PO PRN (23:47)
[2024-03-19] VITALS (15 sets, daily range): BP systolic 94–118; BP diastolic 51–67; PULSE 47–74; RESP 16–19; TEMP 97.7–98.6; O2SAT 94–100
[2024-03-19 08:41] LABS: Basophils # (auto) 0 10 ^3/uL (0-0.2); Basophils % (auto) 0.2 % (0.0-2.0); Eosinophils # (auto) 0.2 10 ^3/uL (0-0.8); Eosinophils % (auto) 2.3 % (0.0-7.0); Hematocrit 32.1 % (36.0-46.0); Hemoglobin 10.7 g/dL (12.2-16.2); Lymphocytes # (auto) 0.5 10 ^3/uL (0.4-5.4); Lymphocytes % (auto) 5.3 % (10.0-50.0); Mean Corpuscular Hemoglobin 32.1 pg (28.0-32.0); Mean Corpuscular Hgb Conc. 33.5 g/dL (32.0-36.0); Mean Corpuscular Volume 95.9 fL (80.0-100.0); Monocytes # (auto) 0.7 10 ^3/uL (0-1.3); Monocytes % (auto) 7.2 % (0.0-12.0); Neutrophils # (auto) 8.8 10 ^3/uL (1.6-8.6); Nucleated Red Blood Cells % 0.1 %; Platelet Count (auto) 237 10^3/uL (140-450); Red Blood Cells 3.34 10^6/uL (4.0-5.20); Red Cell Distribution Width 13.8 % (11.8-14.3); White Blood Cell 10.3 10^3/uL (4.4-10.8)
[2024-03-19 12:17] LABS: Alanine Aminotransferase 52 U/L (7-40); Albumin 2.7 g/dL (3.2-4.8); Alkaline Phosphatase 70 U/L (46-116); Anion Gap 4 (5-15); BUN/Creatinine Ratio 56.7 (10.0-20.0); Bilirubin, Total < 0.2 mg/dL (0.2-1.0); Calcium 8.3 mg/dL (8.7-10.4); Carbon Dioxide 26 mmol/L (20-31); Chloride 99 mmol/L (98-107); Magnesium 2.6 mg/dL (1.6-2.6); Potassium 5.3 mmol/L (3.5-5.1); Total Protein 4.9 g/dL (5.7-8.2)
[2024-03-19 12:18] LABS: Blood Urea Nitrogen 55 mg/dL (9-23); Sodium 129 mmol/L (136-145)
[2024-03-19 12:27] LABS: Aspartate Aminotransferase 57 U/L (13-40)
[2024-03-19 12:36] LABS: Glucose 963 mg/dL (74-106)
[2024-03-19 17:43] LABS: Alanine Aminotransferase 52 U/L (7-40); Alkaline Phosphatase 79 U/L (46-116); Anion Gap 6 (5-15); Aspartate Aminotransferase 44 U/L (13-40); BUN/Creatinine Ratio 80.3 (10.0-20.0); Blood Urea Nitrogen 57 mg/dL (9-23); Carbon Dioxide 29 mmol/L (20-31); Chloride 102 mmol/L (98-107); Glucose 102 mg/dL (74-106); Sodium 137 mmol/L (136-145)
[2024-03-19 17:44] LABS: Bilirubin, Total 0.2 mg/dL (0.2-1.0); Total Protein 5.6 g/dL (5.7-8.2)
[2024-03-19 17:48] LABS: Potassium 3.2 mmol/L (3.5-5.1)
[2024-03-19] MEDS: ENSURE CLEAR Mixed Berry 8oz Carton PO SCH (18:00)
[2024-03-19] MEDS ORDERED: TPN PER PHARMACY IV NR (20:00)
[2024-03-20] VITALS (14 sets, daily range): BP systolic 100–126; BP diastolic 60–77; PULSE 58–69; RESP 16–24; TEMP 97.7–98.1; O2SAT 92–100
[2024-03-20] MEDS: SUCRALFATE 1 GM/10 ML ORAL SUSP PO SCH (05:53)
[2024-03-20 08:17] LABS: Alanine Aminotransferase 41 U/L (7-40); Albumin 2.9 g/dL (3.2-4.8); Alkaline Phosphatase 79 U/L (46-116); Anion Gap 5 (5-15); Aspartate Aminotransferase 30 U/L (13-40); Blood Urea Nitrogen 48 mg/dL (9-23); Calcium 8.9 mg/dL (8.7-10.4); Carbon Dioxide 30 mmol/L (20-31); Chloride 102 mmol/L (98-107); Glucose 105 mg/dL (74-106); Potassium 3.4 mmol/L (3.5-5.1); Sodium 137 mmol/L (136-145)
[2024-03-20 08:18] LABS: Bilirubin, Total 0.3 mg/dL (0.2-1.0); Phosphorus 3.2 mg/dL (2.4-5.1); Total Protein 5.3 g/dL (5.7-8.2)
[2024-03-20] MEDS ORDERED: HYDROcodone-ACET 5/325MG TAB PO PRN (18:15)
[2024-03-20] MEDS: MORPHINE SULFATE 4 MG/ML SYR/VIAL IV PRN (20:29)
[2024-03-21] VITALS (15 sets, daily range): BP systolic 103–135; BP diastolic 57–71; PULSE 64–77; RESP 14–20; TEMP 97.8–98.7; O2SAT 90–99
[2024-03-21 05:39] LABS: Basophils # (auto) 0 10 ^3/uL (0-0.2); Basophils % (auto) 0.3 % (0.0-2.0); Eosinophils # (auto) 0.1 10 ^3/uL (0-0.8); Eosinophils % (auto) 0.4 % (0.0-7.0); Hematocrit 34.7 % (36.0-46.0); Hemoglobin 11.4 g/dL (12.2-16.2); Lymphocytes # (auto) 0.6 10 ^3/uL (0.4-5.4); Lymphocytes % (auto) 4.2 % (10.0-50.0); Mean Corpuscular Hemoglobin 30.2 pg (28.0-32.0); Mean Corpuscular Volume 91.6 fL (80.0-100.0); Monocytes # (auto) 0.9 10 ^3/uL (0-1.3); Monocytes % (auto) 6.1 % (0.0-12.0); Neutrophils # (auto) 12.8 10 ^3/uL (1.6-8.6); Platelet Count (auto) 324 10^3/uL (140-450); Red Blood Cells 3.79 10^6/uL (4.0-5.20); Red Cell Distribution Width 13.2 % (11.8-14.3); White Blood Cell 14.4 10^3/uL (4.4-10.8)
[2024-03-21 06:00] LABS: Alanine Aminotransferase 37 U/L (7-40); Albumin 3.3 g/dL (3.2-4.8); Alkaline Phosphatase 89 U/L (46-116); Anion Gap 7 (5-15); Aspartate Aminotransferase 28 U/L (13-40); BUN/Creatinine Ratio 57.1 (10.0-20.0); Bilirubin, Total 0.4 mg/dL (0.2-1.0); Blood Urea Nitrogen 40 mg/dL (9-23); Calcium 9.5 mg/dL (8.7-10.4); Carbon Dioxide 30 mmol/L (20-31); Chloride 101 mmol/L (98-107); Glucose 103 mg/dL (74-106); Potassium 3.7 mmol/L (3.5-5.1); Sodium 138 mmol/L (136-145)
[2024-03-21] MEDS ORDERED: CLINIMIX PER PHARMACY 0 ML IV SCH (16:45)
[2024-03-21] MEDS ORDERED: TPN PER PHARMACY 0 ML IV SCH (16:45)
[2024-03-21] MEDS ORDERED: DEXTROSE (50%) 50ML SYRG IV SCH (18:00)
[2024-03-21] MEDS: AMINO ACID ELECTROLYTE W/ CALC 1,000 ML IV ONE (20:32)
[2024-03-21] MEDS: InsuLIN REG 1unit/0.01ml Soln (100units/ml) SC SCH (20:33)
[2024-03-21] MEDS: ACCU-CHEK COMFORT CURVE STRIP VI SCH (20:33)
[2024-03-22] VITALS (15 sets, daily range): BP systolic 103–132; BP diastolic 62–91; PULSE 68–77; RESP 14–20; TEMP 95.1–98.3; O2SAT 90–100
[2024-03-22 07:44] LABS: Hematocrit 32.8 % (36.0-46.0); Hemoglobin 10.7 g/dL (12.2-16.2); Mean Corpuscular Hemoglobin 29.8 pg (28.0-32.0); Mean Corpuscular Hgb Conc. 32.7 g/dL (32.0-36.0); Platelet Count (auto) 311 10^3/uL (140-450); Red Cell Distribution Width 13.1 % (11.8-14.3); White Blood Cell 21.5 10^3/uL (4.4-10.8)
[2024-03-22 08:03] LABS: Band Neutrophils % (manual) 0; Basophils % (manual) 0 (0.0-2.0); Blast Cells 0; Eosinophils % (manual) 0 (0-7); Metamyelocytes % 0; Myelocytes % 0; Promyelocytes % 0; Reactive Lymphocytes 0
[2024-03-22 08:06] LABS: Alanine Aminotransferase 26 U/L (7-40); Albumin 3.1 g/dL (3.2-4.8); Alkaline Phosphatase 83 U/L (46-116); Anion Gap 4 (5-15); Aspartate Aminotransferase 21 U/L (13-40); BUN/Creatinine Ratio 62.7 (10.0-20.0); Blood Urea Nitrogen 42 mg/dL (9-23); Calcium 9.8 mg/dL (8.7-10.4); Carbon Dioxide 31 mmol/L (20-31); Chloride 100 mmol/L (98-107); Glucose 156 mg/dL (74-106); Potassium 3.3 mmol/L (3.5-5.1); Sodium 135 mmol/L (136-145)
[2024-03-22 08:07] LABS: Bilirubin, Total 0.4 mg/dL (0.2-1.0); Phosphorus 3.2 mg/dL (2.4-5.1); Total Protein 5.8 g/dL (5.7-8.2)
[2024-03-22 09:42] LABS: Lymphocytes % (manual) 6 (10.0-50.0); Monocytes % (manual) 2 (0-12); Platelet Estimate Adequate
[2024-03-22] MEDS: POTASSIUM CHL 20MEQ/100ML 100 ML IV SCH (12:26)
[2024-03-22] MEDS: MORPHINE SULFATE 4 MG/ML SYR/VIAL IV PRN (17:43)
[2024-03-22] MEDS: TPN PER PHARMACY IV NR (21:27)
[2024-03-22] MEDS: PIPERACILLIN-TAZOB 3.375GM 100 ML IV SCH (21:27)
[2024-03-23] VITALS (12 sets, daily range): BP systolic 103–135; BP diastolic 55–68; PULSE 65–73; RESP 17–20; TEMP 97.2–97.7; O2SAT 94–99
[2024-03-23 07:08] LABS: Alanine Aminotransferase 20 U/L (7-40); Alkaline Phosphatase 76 U/L (46-116); Anion Gap 4 (5-15); Aspartate Aminotransferase 12 U/L (13-40); BUN/Creatinine Ratio 69.5 (10.0-20.0); Blood Urea Nitrogen 41 mg/dL (9-23); Calcium 9.7 mg/dL (8.7-10.4); Carbon Dioxide 29 mmol/L (20-31); Chloride 103 mmol/L (98-107); Glucose 171 mg/dL (74-106); Magnesium 1.9 mg/dL (1.6-2.6); Potassium 3.7 mmol/L (3.5-5.1); Sodium 136 mmol/L (136-145)
[2024-03-23 07:09] LABS: Bilirubin, Total 0.4 mg/dL (0.2-1.0); Phosphorus 2.1 mg/dL (2.4-5.1); Total Protein 5.6 g/dL (5.7-8.2)
[2024-03-23] MEDS: LINEZOLID 600MG/300ML 300 ML IV SCH (10:35)
[2024-03-23] MEDS: POTASSIUM PHOSPHATE 22 MEQ in SODIUM CHL 0.9% 100 ML IV ONE (10:58)
[2024-03-23] MEDS: TPN PER PHARMACY IV NR (21:01)
[2024-03-24] VITALS (14 sets, daily range): BP systolic 95–127; BP diastolic 56–74; PULSE 65–74; RESP 17–20; TEMP 97.6–98.3; O2SAT 64–99
[2024-03-24 08:41] LABS: Alanine Aminotransferase 18 U/L (7-40); Albumin 2.8 g/dL (3.2-4.8); Alkaline Phosphatase 79 U/L (46-116); Anion Gap 5 (5-15); Aspartate Aminotransferase 14 U/L (13-40); BUN/Creatinine Ratio 70.9 (10.0-20.0); Blood Urea Nitrogen 39 mg/dL (9-23); Calcium 9.4 mg/dL (8.7-10.4); Carbon Dioxide 30 mmol/L (20-31); Chloride 102 mmol/L (98-107); Glucose 179 mg/dL (74-106); Magnesium 1.8 mg/dL (1.6-2.6); Sodium 137 mmol/L (136-145); Triglycerides 63 mg/dL (< 150)
[2024-03-24 08:42] LABS: Phosphorus 2.8 mg/dL (2.4-5.1)
[2024-03-24 08:43] LABS: Bilirubin, Total 0.2 mg/dL (0.2-1.0); Total Protein 5.5 g/dL (5.7-8.2)
[2024-03-24] MEDS: POTASSIUM CHL 20MEQ/100ML 100 ML IV SCH (12:45)
[2024-03-24 12:51] LABS: Basophils # (auto) 0 10 ^3/uL (0-0.2); Basophils % (auto) 0.1 % (0.0-2.0); Eosinophils # (auto) 0 10 ^3/uL (0-0.8); Eosinophils % (auto) 0.4 % (0.0-7.0); Hematocrit 30.5 % (36.0-46.0); Lymphocytes # (auto) 0.4 10 ^3/uL (0.4-5.4); Lymphocytes % (auto) 3.1 % (10.0-50.0); Mean Corpuscular Hemoglobin 30.1 pg (28.0-32.0); Mean Corpuscular Hgb Conc. 32.7 g/dL (32.0-36.0); Mean Corpuscular Volume 91.9 fL (80.0-100.0); Monocytes # (auto) 0.9 10 ^3/uL (0-1.3); Monocytes % (auto) 7.1 % (0.0-12.0); Neutrophils # (auto) 11.8 10 ^3/uL (1.6-8.6); Neutrophils % (auto) 89.3 % (37.0-80.0); Platelet Count (auto) 287 10^3/uL (140-450); Red Blood Cells 3.32 10^6/uL (4.0-5.20); Red Cell Distribution Width 13.4 % (11.8-14.3); White Blood Cell 13.3 10^3/uL (4.4-10.8)
[2024-03-24] MEDS: TPN PER PHARMACY IV NR (20:20)
[2024-03-25] VITALS (8 sets, daily range): BP systolic 99–134; BP diastolic 42–69; PULSE 66–71; RESP 16–19; TEMP 97.9–98.6; O2SAT 93–98
[2024-03-25 06:59] LABS: Basophils # (auto) 0 10 ^3/uL (0-0.2); Basophils % (auto) 0.1 % (0.0-2.0); Eosinophils # (auto) 0.1 10 ^3/uL (0-0.8); Eosinophils % (auto) 1.2 % (0.0-7.0); Hematocrit 29.3 % (36.0-46.0); Hemoglobin 9.9 g/dL (12.2-16.2); Lymphocytes # (auto) 0.4 10 ^3/uL (0.4-5.4); Lymphocytes % (auto) 4.4 % (10.0-50.0); Mean Corpuscular Hemoglobin 30.6 pg (28.0-32.0); Mean Corpuscular Hgb Conc. 33.8 g/dL (32.0-36.0); Mean Corpuscular Volume 90.7 fL (80.0-100.0); Monocytes # (auto) 0.9 10 ^3/uL (0-1.3); Monocytes % (auto) 9.6 % (0.0-12.0); Neutrophils # (auto) 8.4 10 ^3/uL (1.6-8.6); Neutrophils % (auto) 84.7 % (37.0-80.0); Platelet Count (auto) 287 10^3/uL (140-450); Red Blood Cells 3.23 10^6/uL (4.0-5.20); Red Cell Distribution Width 13.1 % (11.8-14.3); White Blood Cell 9.9 10^3/uL (4.4-10.8)
[2024-03-25 07:21] LABS: Alanine Aminotransferase 22 U/L (7-40); Albumin 2.8 g/dL (3.2-4.8); Alkaline Phosphatase 76 U/L (46-116); Anion Gap 4 (5-15); Aspartate Aminotransferase 20 U/L (13-40); Blood Urea Nitrogen 35 mg/dL (9-23); Calcium 9.2 mg/dL (8.7-10.4); Carbon Dioxide 30 mmol/L (20-31); Chloride 100 mmol/L (98-107); Glucose 147 mg/dL (74-106); Magnesium 1.7 mg/dL (1.6-2.6); Potassium 3.4 mmol/L (3.5-5.1); Sodium 134 mmol/L (136-145)
[2024-03-25 07:22] LABS: Bilirubin, Total 0.2 mg/dL (0.2-1.0); Total Protein 5.5 g/dL (5.7-8.2)
[2024-03-25 07:43] LABS: Phosphorus 3.3 mg/dL (2.4-5.1)
[2024-03-25] MEDS: POTASSIUM CHL 20MEQ/100ML 100 ML IV SCH (10:44)
[2024-03-25] MEDS: FUROSEMIDE 40 MG/4 ML VIAL IV ONE (14:35)
[2024-03-25] MEDS: TPN PER PHARMACY IV NR (20:44)
[2024-03-26] VITALS (19 sets, daily range): BP systolic 96–141; BP diastolic 59–84; PULSE 36–76; RESP 14–20; TEMP 97.5–98.2; O2SAT 94–100
[2024-03-26 06:50] LABS: Basophils # (auto) 0 10 ^3/uL (0-0.2); Basophils % (auto) 0.4 % (0.0-2.0); Eosinophils # (auto) 0.3 10 ^3/uL (0-0.8); Eosinophils % (auto) 2.5 % (0.0-7.0); Hematocrit 30.2 % (36.0-46.0); Hemoglobin 10.2 g/dL (12.2-16.2); Lymphocytes # (auto) 0.6 10 ^3/uL (0.4-5.4); Lymphocytes % (auto) 5.8 % (10.0-50.0); Mean Corpuscular Hemoglobin 30.6 pg (28.0-32.0); Mean Corpuscular Hgb Conc. 33.8 g/dL (32.0-36.0); Mean Corpuscular Volume 90.6 fL (80.0-100.0); Monocytes # (auto) 1.1 10 ^3/uL (0-1.3); Monocytes % (auto) 10.1 % (0.0-12.0); Neutrophils # (auto) 8.6 10 ^3/uL (1.6-8.6); Neutrophils % (auto) 81.2 % (37.0-80.0); Platelet Count (auto) 298 10^3/uL (140-450); Red Blood Cells 3.33 10^6/uL (4.0-5.20); Red Cell Distribution Width 13.1 % (11.8-14.3); White Blood Cell 10.6 10^3/uL (4.4-10.8)
[2024-03-26 06:55] LABS: Alanine Aminotransferase 26 U/L (7-40); Albumin 2.9 g/dL (3.2-4.8); Alkaline Phosphatase 81 U/L (46-116); Anion Gap 3 (5-15); Aspartate Aminotransferase 22 U/L (13-40); BUN/Creatinine Ratio 67.9 (10.0-20.0); Bilirubin, Total 0.2 mg/dL (0.2-1.0); Blood Urea Nitrogen 36 mg/dL (9-23); Carbon Dioxide 32 mmol/L (20-31); Chloride 100 mmol/L (98-107); Glucose 114 mg/dL (74-106); Magnesium 1.8 mg/dL (1.6-2.6); Potassium 3.7 mmol/L (3.5-5.1); Sodium 135 mmol/L (136-145); Total Protein 5.6 g/dL (5.7-8.2)
[2024-03-26] MEDS: TPN PER PHARMACY IV NR (20:00)
== END 2024-03-26 23:25 | disposition short-term general hospital (02) | DRG 177 ==
LOC: EDBD 15:56 → ER 15:56 → OVERFLOW 23:25 → WEST WING 03-04 03:44 → TELE-WESTW 03-06 20:50 → DOU IN ICU 03-07 16:24 → ICU CENTRL 03-07 18:35 → DOU IN ICU 03-10 18:03 → TELE-CENTR 03-18 13:29 → CENTRAL 03-19 19:18
PROVIDERS: ADMIT Student in an Organized Health Care Education/Training Program; ATTEND Nurse Practitioner Acute Care
PROC: 5A09357 Assistance with Respiratory Ventilation, Less than 24 Consecutive Hours, Continuous Positive Airway Pressure (ICD-10-PCS; 2024-03-07)
PROC: 02HV33Z Insertion of Infusion Device into Superior Vena Cava, Percutaneous Approach (ICD-10-PCS; 2024-03-07)
PROC: B548ZZA Ultrasonography of Superior Vena Cava, Guidance (ICD-10-PCS; 2024-03-07)
PROC: 05H933Z Insertion of Infusion Device into Right Brachial Vein, Percutaneous Approach (ICD-10-PCS; 2024-03-07)
PROC: B54MZZA Ultrasonography of Right Upper Extremity Veins, Guidance (ICD-10-PCS; 2024-03-07)
PROC: 3E0436Z Introduction of Nutritional Substance into Central Vein, Percutaneous Approach (ICD-10-PCS; 2024-03-07)
PROC: 0W9B3ZX Drainage of Left Pleural Cavity, Percutaneous Approach, Diagnostic (ICD-10-PCS; principal; 2024-03-08)
PROC: 5A09357 Assistance with Respiratory Ventilation, Less than 24 Consecutive Hours, Continuous Positive Airway Pressure (ICD-10-PCS; 2024-03-08)
DX: J69.0 Pneumonitis due to inhalation of food and vomit (principal); I50.23 Acute on chronic systolic (congestive) heart failure; J96.22 Acute and chronic respiratory failure with hypercapnia; J96.21 Acute and chronic respiratory failure with hypoxia; S42.92XA Fracture of left shoulder girdle, part unspecified, initial encounter for closed fracture; J98.11 Atelectasis; R64 Cachexia; J91.8 Pleural effusion in other conditions classified elsewhere; D68.59 Other primary thrombophilia; Z68.1 Body mass index [BMI] 19.9 or less, adult; K44.9 Diaphragmatic hernia without obstruction or gangrene; J15.9 Unspecified bacterial pneumonia; I11.0 Hypertensive heart disease with heart failure; K21.9 Gastro-esophageal reflux disease without esophagitis; E78.5 Hyperlipidemia, unspecified; I48.0 Paroxysmal atrial fibrillation; J44.89 Other specified chronic obstructive pulmonary disease; Z82.3 Family history of stroke; Z98.84 Bariatric surgery status; Z95.1 Presence of aortocoronary bypass graft; Z93.3 Colostomy status; Z90.710 Acquired absence of both cervix and uterus; Z98.51 Tubal ligation status; Z79.899 Other long term (current) drug therapy; K22.0 Achalasia of cardia; H91.90 Unspecified hearing loss, unspecified ear
CPT/HCPCS: 32555; 36415; 36569; 36600; 71045; 74018; 74176; 74177; 74250; 80048; 80053; 80069; 81001; 82805; 82962; 83605; 83690; 83735; 83880; 83986; 84100; 84132; 84478; 84484; 85007; 85025; 85027; 85610; 85730; 87040; 87081; 87205; 89051; 92610; 93005; 93306; 94640; 94660; 97163; 97530; G0378; J1815; J1885; J2405; J2470; J2543; J3480; J7060; J7131

== ENCOUNTER 2024-11-11 06:06 | Day surgery (SDC) | payer OTHER, MEDICAID ==
[~2024-11-11] VITALS: Ht 154.9 cm; Wt 47.6 kg
[~2024-11-11 06:06] MED LIST: AMIO200T33 PO; APIX5TAB PO; CHOL500021 OR; CYAN100T7 PO; FAMO-12 PO; HYDR1TAB97 PO; MULT-1018 PO; [UNRECOGNIZED DRUG - CODE] PO
[2024-11-11] MEDS ORDERED: ceFAZolin 2 GM/D5W50ml 50 ML IV ONE (06:34)
[2024-11-11] MEDS ORDERED: LIDOCAINE 2% (LOCAL ANESTH.) PF 5ml SDV ONE (07:10)
[2024-11-11] MEDS ORDERED: MIDAZOLAM HCL 2MG/2ML 2ml VIAL (1mg/ml) ONE (07:10)
[2024-11-11] MEDS ORDERED: fentaNYL CITRATE 100 MCG/2 ML VL ONE (07:10)
[2024-11-11] MEDS ORDERED: METOCLOPRAMIDE HCL 5MG/ml INJ 2ml VIAL ONE (07:10)
[2024-11-11] MEDS ORDERED: ONDANSETRON HCL 4 MG/2 ML VIAL ONE (07:10)
[2024-11-11] MEDS ORDERED: PROPOFOL 10 MG/ML 20 ML IV ONE (07:11)
[2024-11-11] MEDS ORDERED: hydrALAZINE HCL 20 MG/ML VL IV PRN (07:15)
[2024-11-11] MEDS ORDERED: METOCLOPRAMIDE HCL 5MG/ml INJ 2ml VIAL IV ONE (07:15)
[2024-11-11] MEDS ORDERED: ONDANSETRON HCL 4 MG/2 ML VIAL IV ONE (07:15)
[2024-11-11] MEDS: LIDOCAINE W/ EPINEPHRINE 2% INJ 20ML VIAL ONE (07:35)
[2024-11-11] MEDS: BUPIVACAINE 0.5% P/F INJ 10 ML VIAL ONE (07:35)
[2024-11-11] MEDS: MORPHINE SULF PF 5 MG/10 ML VIAL ONE (07:35)
[2024-11-11] MEDS ORDERED: ceFAZolin 1GM VL ONE (07:51)
[2024-11-11] MEDS: HYDROmorphone HCL 2 MG/ML VL/or syr IV PRN (08:30)
--- NOTE | 2024-11-11 08:40 | DVH ---
C-ARM FLUOROSCOPY: PROCEDURE: Right SI fusion FLUOROSCOPY TIME: 1.5 min DAP: 35.6 mgy FINDINGS: Spot intraoperative C arm radiographs demonstrating right SI fusion.. IMPRESSION: Please refer to surgical report for detailed findings.
[2024-11-11 09:00] VITALS: BP 120/67; PULSE 78; RESP 19; O2SAT 100
== END 2024-11-11 09:00 | disposition home or self-care (01) ==
LOC: SUR 06:06
PROVIDERS: ATTEND Anesthesiology Pain Medicine
DX: M46.1 Sacroiliitis, not elsewhere classified (principal); M53.3 Sacrococcygeal disorders, not elsewhere classified; M53.2X8 Spinal instabilities, sacral and sacrococcygeal region; M53.88 Other specified dorsopathies, sacral and sacrococcygeal region; M47.818 Spondylosis without myelopathy or radiculopathy, sacral and sacrococcygeal region; I10 Essential (primary) hypertension; I48.91 Unspecified atrial fibrillation; G47.30 Sleep apnea, unspecified; K21.9 Gastro-esophageal reflux disease without esophagitis; K44.9 Diaphragmatic hernia without obstruction or gangrene; Z95.1 Presence of aortocoronary bypass graft; Z90.710 Acquired absence of both cervix and uterus; Z98.890 Other specified postprocedural states
CPT/HCPCS: 27279; 72170; C1889; J0690; J1171; J2003; J2250; J2270; J2405; J2704; J2765; J3010; J3490; 76000